=== PATIENT | male | born 2000 | race Caucasian/White ===

== ENCOUNTER 2020-10-18 21:37 | Emergency (ER) | payer OTHER ==
[~2020-10-18] VITALS: Ht 165.1 cm; Wt 70.5 kg
[2020-10-18 22:41] LABS: AMPHET/METH SCREEN,URINE NEGATIVE (NEGATIVE); BARBITURATE SCREEN, URINE NEGATIVE (NEGATIVE); BENZODIAZEPINES SCREEN,URINE NEGATIVE (NEGATIVE); CANNABINOID SCREEN,URINE POSITIVE (NEGATIVE); COCAINE SCREEN,URINE NEGATIVE (NEGATIVE); METHADONE SCREEN, URINE NEGATIVE (NEGATIVE); OPIATE SCREEN,URINE NEGATIVE (NEGATIVE)
[2020-10-18 22:42] LABS: PHENCYCLIDINE SCREEN,URINE NEGATIVE (NEGATIVE)
[2020-10-18 23:45] VITALS: BP 148/88
== END 2020-10-19 00:34 | disposition home or self-care (01) ==
LOC: EMS 21:37
DX: F12.10 Cannabis abuse, uncomplicated (principal)
CPT/HCPCS: 99283